=== PATIENT | female | born 1975 | race Caucasian/White ===

== ENCOUNTER → 2016-04-06 | Day surgery (SDC) | payer OTHER ==
[~2016-04-06] VITALS: Ht 157.5 cm; Wt 98.4 kg
[~2016-04-06] MED LIST: ADVAIR 250-501 EACH INH; IBUPROFEN800 M1 PO; LOSARTAN POTASS25 M1 PO; OMEPRAZOLE20 M2 PO; PROAIR HFA8.5 GM INH; VITAMIN C500 M6 PO; ZYRTEC10 M3 PO
--- NOTE | 2016-04-06 13:23 | Operative Report ---
Operative/Inv Procedure Report Surgery Date: 04/06/16 Name of Procedure: urethral sling, cystoscopy Pre-Operative Diagnosis: stress incontinence Post-Operative Diagnosis: same Estimated Blood Loss: less than 50ml Surgeon/Connie Scratcher: MARYLOU GRIMALDO MD Anesthesia: local monitored anesthesi Implants: vaginal mesh Drains: none Complications: none Condition: stable Operative Indication: stress incontinence Operative/Procedure Note Note: This an operative dictation on patient Cecilia Wahl. She was consented in the holding area for urethral sling and cystoscopy. She was given the risks benefits and alternatives of the surgery and all questions were answered. The risks of vaginal mesh were reviewed as well. Patient was taken to the operating room placed on the operating table in the supine position. Once timeout was performed IV antibiotics were infused and IV sedation was started. Patient was then placed in the dorsal lithotomy position and prepped and draped in the standard sterile fashion. Eng catheter was placed at the beginning of the surgery and the bladder was emptied. The Eng was clamped and placed on the abdomen. Since retractor was placed and 1% lidocaine with epinephrine was infiltrated into the anterior vaginal wall suburethral E. Incision was made vaginal flaps are created taking care not to injure the urethra. The Altis Sling kit was then opened and the trochars provided were used to place the sling on the patient's left side followed by the right side. Care was taken not to twist the mesh and was seen to be in a flat orientation and a tension-free manner under the urethra. The sling was tightened and the Prolene suture was cut. There area was irrigated with bacitracin irrigation. The incision was closed with running locking 3-0 Vicryl suture. The Eng catheter was removed and the bladder was globally inspected. There were no abnormalities appreciated. The ureteral orifices were in the normal anatomic position. There was no mesh in the bladder or the urethra. The bladder was emptied. The cystoscope was removed. The sponge and needle count were correct at the end of the case. 2 inch vaginal packing with bacitracin ointment was placed into the vaginal vault. Patient tolerated the procedure well. Findings: no mesh in bladder or urethra. Discharge Disposition: PACU
== END ==
LOC: STS 01:46
DX: N39.3 Stress incontinence (female) (male) (principal); I10 Essential (primary) hypertension; J45.909 Unspecified asthma, uncomplicated; Z87.891 Personal history of nicotine dependence
CPT/HCPCS: C1771; J0131; J0744; J2250; J7060

== ENCOUNTER 2016-04-15 14:37 | Emergency (ER) | payer OTHER ==
[~2016-04-15] VITALS: Ht 165.1 cm; Wt 81.6 kg
--- NOTE | 2016-04-15 16:10 | ED UPPER/LOWER EXTREMITY COMPL ---
History of Present Illness General Chief Complaint: Laceration Procedure Stated Complaint: LAC TO LFT HAND Source: patient Exam Limitations: no limitations Vital Signs & Intake/Output Vital Signs & Intake/Output Vital Signs Date Time Temp Pulse Resp B/P Pulse O2 O2 Flow FiO2 Ox Delivery Rate 04/15 1720 88 16 135/86 98 Room Air 04/15 1550 Room Air 04/15 1450 97.4 91 18 145/88 98 Room Air Allergies Coded Allergies: adhesive (Intermediate, HIVES 04/15/16) bacitracin (Intermediate, HIVES 04/15/16) Penicillins (HIVES 04/03/16) Sulfa (Sulfonamide Antibiotics) (HIVES 04/03/16) erythromycin base (HIVES 04/03/16) sulfisoxazole (HIVES 04/03/16) Reconcile Medications Albuterol Sulfate (Proair Hfa) 90 MCG HFA.AER.AD 1-2 PUF INH AD COPD ( Reported) Ascorbate Calcium (Vitamin C) 500 MG TABLET 1 TAB PO DAILY SUPPLEMENT ( Reported) Cetirizine HCl (Zyrtec) 10 MG TABLET 1 TAB PO DAILY ALLERGIES (Reported) Fluticasone/Salmeterol (Advair 250-50 Diskus) 250 MCG-50 MCG/DOSE BLST.W.DEV 1 PUF INH BID COPD (Reported) Ibuprofen 800 MG TABLET 1 TAB PO PRN PAIN (Reported) Losartan Potassium 25 MG TABLET 1 TAB PO DAILY BP (Reported) Omeprazole 20 MG CAPSULE.DR 1 CAP PO DAILY GERD (Reported) Triage Note: PT TO ER C/C LAC TO LEFT 5TH FINGER FROM A KNIFE WHILE WASHING DISHES; BLEEDING CONTROLLED. UNSURE OF LAST TETNUS INJECTION Triage Nurses Notes Reviewed? yes : No Patient currently breastfeeds: No HPI: RHD, CLEANING NEW KNIVES TODAY, CUT HER LEFT 5TH DIGIT VOLAR ASPECT. INJURY OCCURED CARPENTER. NO WEAKNESS, NO NUBMENSS, NO LOSS OF MOTOR. UNSURE OF LAST TETANUS INJECTION. MILD SHARP PAIN, MINIMAL BLEEING. NO TX THUS FAR. (ENA BLUE,LIV) Past History Travel History Traveled to [place] past 21 day No Medical History Any Pertinent Medical History? see below for history Cardiovascular: hypertension Respiratory: asthma Gastrointestinal: GERD Tetanus Status: not up to date Surgical History Surgical History: non-contributory Psychosocial History What is your primary language Danish Tobacco Use: Quit >30 days ago Family History Hx Contributory? No (LIV FLORES) Review of Systems Review of Systems Constitutional: Reports: see HPI. EENTM: Reports: no symptoms. Respiratory: Reports: no symptoms. Cardiovascular: Reports: no symptoms. Gastrointestinal/Abdominal: Reports: no symptoms. Genitourinary: Reports: no symptoms. Musculoskeletal: Reports: see HPI. Skin: Reports: no symptoms. Neurological/Psychological: Reports: no symptoms. Hematologic/Endocrine: Reports: no symptoms. Immunological: Reports: no symptoms. All Other Systems: Reviewed and Negative (LIV FLORES) Physical Exam Physical Exam General Appearance: well developed/nourished Comments: Well-developed well-nourished no apparent distress. HEENT: Atraumatic, extraocular motion intact Neck: Supple, no lymphadenopathy Back: Nontender Respiratory: No respiratory distress Extremities: No edema, full range of motion Neuro: Alert and oriented x3 Psych: Mood affect normal, normal memory normal judgment. Skin: Warm and dry, no rash on exposed skin Left hand, fifth digit volar aspect distal aspect of the proximal phalanx with a flap-type laceration to the ulnar aspect. Measuring approximately 2.5 centimeters in length. Distally sensation is intact vascular status is intact capillary refill less than 2 seconds, no functional tendon deficit and no tendon laceration noted in the wound. (LIV FLORES) Progress Differential Diagnosis: tendon injury (ARTERIAL INJURY) Plan of Care: Current Medications Sig/Dinesh Start time Last Medication Dose Stop Time Status Admin Tetanus/Diphtheria 0.5 ML ONCE ONE 04/15 1614 UNVr Toxoids Adsorbed 04/15 161 (Decavac) Comments: After verbal consent was obtained the laceration area was anesthetized with lidocaine 4 mL 1% plain without epinephrine as a digital block to the left hand fifth digit after sterile prep It was prepped and draped in a sterile fashion with Betadine. The wound was copiously irrigated with normal saline. The wound was inspected and no foreign bodies or tendon lacerations were noted on exam and there is no functional deficit. There is no arterial bleeding. 5-0 nylon simple interrupted sutures were placed 5 Sutures in total. sterile dressing was applied. Distally the neurovascular status was intact postprocedure. The patient tolerated the procedure well without complications. Infection and risk of foreign body or tendon laceration was discussed with patient. Follow-up instructions and wound care was discussed. Tetanus vaccination was given (LIV FLORES) Departure Departure Disposition: HOME OR SELF CARE Condition: Stable Clinical Impression Primary Impression: Laceration of finger of left hand Qualifiers: Encounter type: initial encounter Qualified Code: S61.219A - Laceration without foreign body of unspecified finger without damage to nail, initial encounter Referrals: LYNNETTE AGUIELRA,ADDIE [place] (PCP/Family) Additional Instructions: Follow-up in 7-10 days either with your doctor or return to the emergency room for wound check and removal of sutures/candie Watch for signs of infection: Redness, swelling, pain, fever, discharge The possibility of a tendon laceration or foreign body exists. Please watch for signs of infection and return with any concerns Departure Forms: Customer Survey General Discharge Information (LIV FLORES) PA/ALARM INSTALLATION TECHNICIAN Co-Sign Statement Statement: ED Attending supervision documentation- [] I saw and evaluated the patient. I have also reviewed all the pertinent lab results and diagnostic results. I agree with the findings and the plan of care as documented in the PA's/ALARM INSTALLATION TECHNICIAN's documentation. x I have reviewed the ED Record and agree with the PA's/ALARM INSTALLATION TECHNICIAN's documentation. [] Additions or exceptions (if any) to the PAs/ALARM INSTALLATION TECHNICIAN's note and plan are summarized below: [] (YESY AGUILERA,ELVIRA)
[2016-04-15 17:20] VITALS: BP 135/86
== END 2016-04-15 17:21 ==
LOC: ERH 14:37
DX: S61.217A Laceration without foreign body of left little finger without damage to nail, initial encounter (principal); W26.0XXA Contact with knife, initial encounter; Y93.G1 Activity, food preparation and clean up
CPT/HCPCS: 90471; 90714